=== PATIENT | female | born 1950 | race Caucasian/White ===

== ENCOUNTER → 2017-04-16 | Outpatient (CLI) | payer MEDICARE, BC ==
--- NOTE | ~2017-04-16 | MY29 ---
[facility] RADIOLOGY TEXT RESULTS PATIENT: FAM ANDREWS LOCATION: [facility] : 46 UNIT #: [id number] AGE: [address]: Moreno Rubio MD SEX: F ORDER DR: [id number] [facility] [address] [place], [place] [address] [id number] O MR#: [id number] Acc #: [id number] NAME: FAM ANDREWS. : 1950 SEX: F STUDY DATE/TIME: 04/16/2017 14:59 UNIT: [facility] ROOM: STUDY DESCRIPTION: MY SENAIT SCREENING W/ CAD BILAT Attending Physician: Moreno Rubio M.D. Referring Physician: Moreno Rubio M.D. Ordering Physician: Moreno Rubio M.D. Primary Care Physician: Moreno Rubio M.D. MEDICAL IMAGING REPORT This report is preliminary unless electronic signature is present EXAM Digital screening mammogram 04/16/2017. HISTORY 66-year-old woman positive family history sister, niece 2 aunts. Annual screening COMPARISON STUDIES comparison mammograms date to 03/30/2008 with most recent 04/14/2016. FINDINGS Digital imaging of each breast was completed utilizing screening protocol. Review includes FDA-approved CAD device. Breast parenchyma is partially fatty replaced. Nodularity projects anterior thirds of each breast with slight dominance stable in the right breast. Ducts are mildly ectatic in each breast. I see no suspicious mass. There are no interval occurring microcalcifications and no suspicious architectural deformity. IMPRESSION Negative mammogram. Annual screening recommended. BIRADS 1 Patients over the age of 40 are entered into a reminder system with target due date for the next mammogram. A result letter will also be sent to the patient. BIRADS: 1 Negative Dictated by... Jeb Horn M.D. [facility] RADIOLOGY TEXT RESULTS PATIENT: FAM ANDREWS LOCATION: [facility] : 46 UNIT #: [id number] AGE: [address]: Moreno Rubio MD SEX: F ORDER DR: THIS IS AN ELECTRONICALLY VERIFIED REPORT Jeb Horn M.D. at 04/19/2017 8:08 AM Lacie TD: 04/16/2017 21:17 JOB #: [id number] MEDICAL IMAGING REPORT Page 1 of 1 COPY
== END | disposition home or self-care (01) ==
LOC: CWCC 14:23
DX: Z12.31 Encounter for screening mammogram for malignant neoplasm of breast (principal); Z80.3 Family history of malignant neoplasm of breast
CPT/HCPCS: G0202